=== PATIENT | male | born 1990 | race Two or more races ===

== ENCOUNTER → 2025-01-30 | Outpatient (CLI) | payer BC, SELFPAY ==
--- NOTE | 2025-01-30 14:00 | XR_ITS ---
Examination: Abdomen sonogram, complete Date and time of exam: January 30, 2025 1400 hours INDICATIONS: Elevated liver enzymes on laboratory examination performed 3 months ago. Technique: Multiple real-time grayscale transabdominal sonographic images of the abdomen have been obtained. Findings: Normal gallbladder Normal common bile duct 0.2 cm Pancreatic head 2.2 cm Aorta not enlarged. Liver 14.4 cm fatty infiltration no focal liver lesions Normal hepatopedal portal venous flow Patent IVC Right kidney 10.6 cm cortex 1.2 cm Left kidney 10.5 cm cortex 1.8 cm Mild bilateral renal parenchymal scar formation Spleen 8.9 cm IMPRESSION: Normal gallbladder Normal common bile duct Liver normal size fatty infiltration
== END | disposition home or self-care (01) ==
PROVIDERS: PCP Student in an Organized Health Care Education/Training Program; Referring Provider Student in an Organized Health Care Education/Training Program; Visit Provider Student in an Organized Health Care Education/Training Program
DX: K76.0 Fatty (change of) liver, not elsewhere classified (principal)
CPT/HCPCS: 76700